=== PATIENT | female | born 1995 | race African-American/Black ===

== ENCOUNTER 2016-03-11 11:47 | Emergency (ER) | payer MEDICAID, OTHER ==
[~2016-03-11] VITALS: Ht 160 cm; Wt 60.0 kg
[~2016-03-11 11:47] MED LIST: DEPRESSION MED; OMEP20TA39 PO
[2016-03-11 11:52] VITALS: BP 124/62; PULSE 103; RESP 15; TEMP 98.2; O2SAT 98
--- NOTE | 2016-03-11 12:07 | PD ---
HPI Chief Complaint: ENT Complaint Time Seen by Provider: 12:03 Travel History International Travel<30 days: No Contact w/Intl Traveler<30days: No Traveled to known affect area: No History of Present Illness HPI 20-year-old female presents to the emergency department for evaluation of cold symptoms for 2 days. Patient reports cough, congestion, sore throat. She states that she saw white spot on her right tonsil. Patient denies any fevers. She has no chronic medical problems and takes no prescribed medications. Patient denies any chance of . PFSH Past Medical History Bipolar Disorder: Yes Anxiety: Yes Depression: Yes Diminished Hearing: Yes (r [place]) Gastrointestinal Disorders: Yes (ulcers) Psychiatric: Yes Immunizations Current: No Ulcer: Yes ?: Not LMP: NOW : 0 Social History Alcohol Use: Yes (once a month) Tobacco Use: No Substance Use: Yes (marijuana) Allergies-Medications (Allergen,Severity, Reaction): Coded Allergies: No Known Allergies (Unverified , 03/11/16) Reported Meds & Prescriptions Reported Meds & Active Scripts Active Reported Prilosec (Omeprazole) 20 Mg Cap 20 Mg PO DAILY Review of Systems Except as stated in HPI: all other systems reviewed are Neg Physical Exam Narrative GENERAL: Well-developed well-nourished female patient, ambulatory. Afebrile. SKIN: Warm and dry. HEAD: Normocephalic. Atraumatic. ENT: Mucosa pink and moist. Small white spot on right tonsil, most likely tonsillar stone. No uvular edema. No uvular, palatal, or tonsillar deviation. Airway patent. Nasal turbinates appear normal without nasal blood, purulent drainage or septal hematoma. Bilateral tympanic membranes are clear without erythema or perforation. EYES: No scleral icterus. No injection or drainage. NECK: Supple, trachea midline. No JVD or lymphadenopathy. CARDIOVASCULAR: Regular rate and rhythm without murmurs, gallops, or rubs. RESPIRATORY: Breath sounds equal bilaterally. No accessory muscle use. Lungs sounds are clear to auscultation. MUSCULOSKELETAL: No cyanosis, or edema. Data Data Last Documented VS Vital Signs Date Time Temp Pulse Resp B/P Pulse Ox O2 Delivery O2 Flow Rate FiO2 03/11/16 11:52 98.2 103 15 124/62 98 Orders Group A Rapid Strep Screen (03/11/16 12:02) Strep Culture (Group A) (03/11/16 12:00) [facility] Medical Decision Making Medical Screen Exam Complete: Yes Emergency Medical Condition: Yes Medical Record Reviewed: Yes Differential Diagnosis Viral URI versus strep pharyngitis versus sinusitis Narrative Course 20-year-old female presents to the emergency department for evaluation of cold symptoms for 2 days. Physical exam is reassuring. Strep swab is ordered and pending. Strep swab is negative. Symptoms are consistent with a viral URI. Diagnosis Primary Impression: Viral URI Referrals: Primary Care Physician call for appointment Patient Instructions: General Instructions, Upper Respiratory Infection (ED) Additional Instructions: Rest. Warm salt water gargles as needed for sore throat. Tylenol or ibuprofen as needed. Follow-up with a primary care physician. Return to the emergency department for any acute worsening of symptoms. Med/Other Pt SpecificInfo: No Change to Meds Disposition: 01 DISCHARGE HOME Condition: Stable Ambika Dejesus JOSEFINA Mar 11, 2016 12:07
[2016-03-11] MEDS ORDERED: PRIL20CA9 PO (12:16)
== END 2016-03-11 12:40 | disposition home or self-care (01) ==
LOC: NEPB 11:47
DX: J06.9 Acute upper respiratory infection, unspecified (principal)
CPT/HCPCS: 87081; 87880; 99283

== ENCOUNTER 2016-03-27 13:22 | Emergency (ER) | payer MEDICAID, OTHER ==
[~2016-03-27] VITALS: Ht 160 cm; Wt 55.0 kg
[~2016-03-27 13:22] MED LIST changes: -DEPRESSION MED; -OMEP20TA39 PO; +PRIL20CA9 PO
[2016-03-27 13:24] VITALS: BP 134/74; PULSE 70; RESP 15; TEMP 97.8; O2SAT 98
[2016-03-27] MEDS ORDERED: IMIT25TA PO (14:36)
--- NOTE | 2016-03-27 14:44 | PD ---
HPI Chief Complaint: Injury Time Seen by Provider: 14:44 Travel History International Travel<30 days: No Contact w/Intl Traveler<30days: No Traveled to known affect area: No History of Present Illness HPI 20-year-old female presents to the emergency Department with complaint of left knee pain after slipping and falling yesterday on a wet floor. She denies hitting her head or loss of consciousness. Denies neck pain or back pain. Denies nausea, vomiting. Reports landing on her left knee and her knee is still swollen. She has been ambulatory on the affected extremity. Pain is worse with walking and movement. Has not taken any medications or tried any treatments to alleviate her symptoms. Denies paresthesias, loss of sensation, decreased range of motion, decreased strength to the affected extremity. Swelling to the area of the knee that she fell on. Denies other extremity pain. Denies chest pain, shortness of breath, abdominal pain. No known allergies. Denies significant past medical history. No other modifying factors or associated signs and symptoms. PFSH Past Medical History Bipolar Disorder: Yes Anxiety: Yes Depression: Yes Diminished Hearing: Yes (r [place]) Gastrointestinal Disorders: Yes (ulcers) Psychiatric: Yes Immunizations Current: No Migraines: Yes Ulcer: Yes ?: Not LMP: 03/10/16 : 0 Past Surgical History Surgical History: No Previous Surgery Social History Alcohol Use: Yes (once a month) Tobacco Use: No Substance Use: Yes (marijuana) Allergies-Medications (Allergen,Severity, Reaction): Coded Allergies: No Known Allergies (Unverified , 03/27/16) Reported Meds & Prescriptions Reported Meds & Active Scripts Active Ibuprofen 800 Mg Tab 800 Mg PO Q6HR PRN Reported Imitrex (Sumatriptan Succinate) 25 Mg Tab 25 Mg PO ONCE PRN If a satisfactory response has not been obtained at 2 hours, a second dose may be administered Prilosec (Omeprazole) 20 Mg Cap 20 Mg PO DAILY Review of Systems Except as stated in HPI: all other systems reviewed are Neg Physical Exam Narrative GENERAL: Well-nourished, well-developed female patient, in no acute distress SKIN: Warm and dry. HEAD: Atraumatic. Normocephalic. EYES: Pupils equal and round. No scleral icterus. No injection or drainage. ENT: Mucosa pink and moist. Airway patent. NECK: Trachea midline. CARDIOVASCULAR: Regular rate. RESPIRATORY: No accessory muscle use. GASTROINTESTINAL: Flat. MUSCULOSKELETAL: Left knee is mildly edematous; without erythema, ecchymosis; with tenderness on palpation to the patellar aspect; no obvious deformity; full range of motion and flexion to 90; joint stable with negative drawer test. Left lower extremity supple and non-tense with 2+ pedal pulse and sensory intact without erythema or edema. No obvious deformities. No cyanosis. NEUROLOGICAL: Awake and alert. Oriented 3. No obvious cranial nerve deficits. Motor grossly within normal limits. Normal speech. PSYCHIATRIC: Appropriate mood and affect; insight and judgment normal. Data Data Last Documented VS Vital Signs Date Time Temp Pulse Resp B/P Pulse Ox O2 Delivery O2 Flow Rate FiO2 03/27/16 13:24 97.8 70 15 134/74 98 Orders Ibuprofen (Motrin) (03/27/16 14:45) Crutches (03/27/16 14:44) Knee, Complete (4vws) (03/27/16 14:44) Ice/Cold Pack (03/27/16 14:44) MDM Medical Decision Making Medical Screen Exam Complete: Yes Emergency Medical Condition: Yes Medical Record Reviewed: Yes Differential Diagnosis Fall, Knee contusion, knee strain, knee fracture Narrative Course 20-year-old female with left knee injury after a mechanical slip and fall yesterday. Denies hitting her head or loss of consciousness. Denies neck pain or back pain. Denies nausea, vomiting. Ibuprofen administered in the ER. Left knee x-ray ordered. 1548: Left knee x-ray concludes a normal examination and no acute findings. Toney bandage applied for support. Crutches provided for support. Ibuprofen prescribed for home. Patient is medically cleared and stable for discharge. Discussed reasons to return to the emergency department. Instructed patient to follow up with primary care provider. Patient agrees with treatment plan. The patients vital signs are stable and the patient is stable for outpatient follow- up and treatment. Patient discharged home, stable and in no acute distress. Diagnosis Primary Impression: Fall Qualified Code: W19.XXXA - Fall, initial encounter Additional Impression: Contusion of left knee Qualified Code: S80.02XA - Contusion of left knee, initial encounter Referrals: Primary Care Physician Patient Instructions: Contusion in Adults (ED), Crutch Instructions (ED), Fall Prevention (ED), General Instructions Departure Forms: Tests/Procedures, Work Release Enter return to work date: Mar 30, 2016 Additional Instructions: Tylenol or ibuprofen as needed and as directed to reduce pain and inflammation Rest, ice, compress, and elevate extremity to decrease pain and inflammation Toney bandage for compression and support Crutches for support Avoid aggravating activity; increase activity as tolerated Follow-up with primary care provider Return to the emergency department immediately with worsening symptoms Med/Other Pt SpecificInfo: Prescription(s) given Scripts Ibuprofen 800 Mg [id number] Mg PO Q6HR PRN (PAIN) #30 TAB Ref 0 Prov:Charis Killian 03/27/16 Disposition: 01 DISCHARGE HOME Condition: Stable Charis Killian Mar 27, 2016 14:44
[2016-03-27] MEDS ORDERED: IBUPROFEN 800 MG TAB PO ONE (14:45)
[2016-03-27] MEDS ORDERED: IBUP800T23 PO (15:07)
--- NOTE | 2016-03-27 15:16 | RADRPT ---
EXAM DATE/TIME: 03/27/2016 15:01 [facility] COMPARISON: No previous studies available for comparison. INDICATIONS : Left Knee pain after fall. MEDICAL HISTORY : None. SURGICAL HISTORY : None. ENCOUNTER: Initial ACUITY: 2 days PAIN SCORE: 9/10 LOCATION: Left Knee. FINDINGS: Four view examination of the left knee demonstrates no evidence of fracture or dislocation. Bony min eralization is normal. The articular surfaces are intact. The suprapatellar soft tissues have a nor mal configuration. CONCLUSION: Normal examination for a patient of this age. Ferdinand Moore MD on March 27, 2016 at 15:12 Board Certified Radiologist. This report was verified electronically.
== END 2016-03-27 16:23 | disposition home or self-care (01) ==
LOC: NEPB 13:22
DX: F12.90 Cannabis use, unspecified, uncomplicated (principal); S80.02XA Contusion of left knee, initial encounter; W01.0XXA Fall on same level from slipping, tripping and stumbling without subsequent striking against object, initial encounter
CPT/HCPCS: 73564; 99283; E0113

== ENCOUNTER 2017-03-22 14:27 | Emergency (ER) | payer SELFPAY ==
[~2017-03-22] VITALS: Ht 160 cm; Wt 57.0 kg
[~2017-03-22 14:27] MED LIST changes: +IBUP1TAB7 PO; +IMIT25TA PO
[2017-03-22 14:28] VITALS: BP 118/64; PULSE 81; RESP 16; TEMP 98.5; O2SAT 100
[2017-03-22 16:06] LABS: AUTOMATED NEUTROPHIL # 1.9 TH/MM3 (1.8-7.7); BASOPHIL % 0.8 % (0.0-2.0); EOSINOPHIL # 0.1 TH/MM3 (0-0.4); HEMATOCRIT 30.5 % (35.0-46.0); HEMOGLOBIN 9.2 GM/DL (11.6-15.3); LYMPH % 35.1 % (9.0-44.0); LYMPHOCYTE # 1.2 TH/MM3 (1.0-4.8); MEAN CELL VOLUME 69.8 FL (80.0-100.0); MEAN CORPUSCULAR HEMOGLOBIN 21.1 PG (27.0-34.0); MEAN CORPUSCULAR HGB CONC 30.3 % (32.0-36.0); MEAN PLATELET VOLUME 8.2 FL (7.0-11.0); MONO % 7.3 % (0.0-8.0); MONOCYTE # 0.3 TH/MM3 (0-0.9); NEUT % 54.8 % (16.0-70.0); PLATELET COUNT 201 TH/MM3 (150-450); RED BLOOD COUNT 4.37 MIL/MM3 (4.00-5.30); RED CELL DISTRIBUTION WIDTH 17.3 % (11.6-17.2); WHITE BLOOD COUNT 3.6 TH/MM3 (4.0-11.0)
[2017-03-22 16:26] LABS: ALBUMIN 3.9 GM/DL (3.4-5.0); ALT (GPT) 12 U/L (10-53); AST (GOT) 11 U/L (15-37); BICARBONATE 27.6 MEQ/L (21.0-32.0); BLOOD UREA NITROGEN 11 MG/DL (7-18); CALCIUM 8.8 MG/DL (8.5-10.1); CHLORIDE 106 MEQ/L (98-107); CREATININE 0.82 MG/DL (0.50-1.00); GLOMERULAR FILTRATION RATE 106 ML/MIN (>89); GLUCOSE,RANDOM 86 MG/DL (74-106); SODIUM (NA) 139 MEQ/L (136-145)
[2017-03-22 16:28] LABS: ALKALINE PHOSPHATASE 37 U/L (45-117); TOTAL BILIRUBIN ADULT 0.7 MG/DL (0.2-1.0); TOTAL PROTEIN 7.5 GM/DL (6.4-8.2)
--- NOTE | 2017-03-22 16:43 | PD ---
HPI Chief Complaint: GI Complaint Time Seen by Provider: 14:38 Travel History International Travel<30 days: No Contact w/Intl Traveler<30days: No Traveled to known affect area: No History of Present Illness HPI Pt is a 21-year-old female presenting for evaluation of her stomach ulcers. She states that the Zantac and Tums she was taking do not work anymore. She reports mild nausea but has not vomited in a week. The pain is epigastric in nature and feels like it is burning into her throat. There are no alleviating or exacerbating factors. Food does not influence her pain. She has not presented to her primary doctor. PFSH Past Medical History Bipolar Disorder: Yes Anxiety: Yes Depression: Yes Diminished Hearing: Yes (r [place]) Gastrointestinal Disorders: Yes (ulcers) Psychiatric: Yes Immunizations Current: No Migraines: Yes Ulcer: Yes ?: Not LMP: 02/24/17 : 0 Social History Alcohol Use: Yes (once a month) Tobacco Use: No Substance Use: Yes (marijuana) Allergies-Medications (Allergen,Severity, Reaction): Coded Allergies: No Known Allergies (Unverified , 03/27/16) Reported Meds & Prescriptions Reported Meds & Active Scripts Active Ibuprofen 800 Mg Tab 800 Mg PO Q6HR PRN Reported Imitrex (Sumatriptan Succinate) 25 Mg Tab 25 Mg PO ONCE PRN If a satisfactory response has not been obtained at 2 hours, a second dose may be administered Prilosec (Omeprazole) 20 Mg Cap 20 Mg PO DAILY Review of Systems Except as stated in HPI: all other systems reviewed are Neg Gastrointestinal: Positive: Nausea, Abdominal Pain, Indigestion Physical Exam Narrative GENERAL: Well-developed, well-nourished, alert female. Presenting in no acute distress. SKIN: Warm and dry. HEAD: Normocephalic. EYES: No scleral icterus. No injection or drainage. CARDIOVASCULAR: Regular rate RESPIRATORY: No accessory muscle use. Data Data Last Documented VS Vital Signs Date Time Temp Pulse Resp B/P (MAP) Pulse Ox O2 Delivery O2 Flow Rate FiO2 03/22/17 16:43 03/22/17 14:28 98.5 81 16 100 Room Air Orders Orders Complete Blood Count With Diff (03/22/17 14:41) Comprehensive Metabolic Panel (03/22/17 14:41) Lipase (03/22/17 14:41) Labs Laboratory Tests Test 03/22/17 15:00 White Blood Count 3.6 TH/MM3 Red Blood Count 4.37 MIL/MM3 Hemoglobin 9.2 GM/DL Hematocrit 30.5 % Mean Corpuscular Volume 69.8 FL Mean Corpuscular Hemoglobin 21.1 PG Mean Corpuscular Hemoglobin Concent 30.3 % Red Cell Distribution Width 17.3 % Platelet Count 201 TH/MM3 Mean Platelet Volume 8.2 FL Neutrophils (%) (Auto) 54.8 % Lymphocytes (%) (Auto) 35.1 % Monocytes (%) (Auto) 7.3 % Eosinophils (%) (Auto) 2.0 % Basophils (%) (Auto) 0.8 % Neutrophils # (Auto) 1.9 TH/MM3 Lymphocytes # (Auto) 1.2 TH/MM3 Monocytes # (Auto) 0.3 TH/MM3 Eosinophils # (Auto) 0.1 TH/MM3 Basophils # (Auto) 0.0 TH/MM3 CBC Comment DIFF FINAL Differential Comment Blood Urea Nitrogen 11 MG/DL Creatinine 0.82 MG/DL Random Glucose 86 MG/DL Total Protein 7.5 GM/DL Albumin 3.9 GM/DL Calcium Level 8.8 MG/DL Alkaline Phosphatase 37 U/L Aspartate Amino Transf (AST/SGOT) 11 U/L Alanine Aminotransferase (ALT/SGPT) 12 U/L Total Bilirubin 0.7 MG/DL Sodium Level 139 MEQ/L Potassium Level 4.1 MEQ/L Chloride Level 106 MEQ/L Carbon Dioxide Level 27.6 MEQ/L Anion Gap 5 MEQ/L Estimat Glomerular Filtration Rate 106 ML/MIN Lipase 227 U/L [facility] Medical Decision Making Medical Screen Exam Complete: Yes Emergency Medical Condition: Yes Interpretation(s) Vital Signs Date Time Temp Pulse Resp B/P (MAP) Pulse Ox O2 Delivery O2 Flow Rate FiO2 03/22/17 16:43 03/22/17 14:28 98.5 81 16 118/64 (82) 100 Room Air Differential Diagnosis Gastritis versus peptic ulcer disease vs metabolic abnormality vs other Narrative Course Patient is a 21-year-old female presented to the emergency room for evaluation of epigastric abdominal pain. Patient's vital signs are stable. Patient is awaiting bed placement. Patient was called to be Wong, she was no longer found to triage after several attempts. Patient left AMA. Diagnosis Primary Impression: Left against medical advice Obdulia Curran Mar 22, 2017 16:43
== END 2017-03-22 16:46 | disposition left against medical advice (07) ==
LOC: NETRI 14:27
DX: R10.13 Epigastric pain (principal); R11.0 Nausea; F12.90 Cannabis use, unspecified, uncomplicated
CPT/HCPCS: 80053; 83690; 85025; 99283